=== PATIENT | female | born 1995 | race Hispanic/Latino ===

== ENCOUNTER 2022-12-24 16:12 | Outpatient (CLI) | payer OTHER, MEDICAID, SELFPAY ==
--- NOTE | ~2022-12-24 | US_ITS ---
EXAMINATION: US pelvic complete w TV DATE: 12/24/2022 16:54 INDICATION: Abnormal vaginal bleeding Comparison:No prior studies for comparison. TECHNIQUE: Multiple transabdominal and endovaginal sonographic images of the pelvis performed. FINDINGS: The uterus measures 8.7 x 4 x 4.8 cm. The endometrial complex measures 1.5 cm. The right ovary measures 3.6 x 2.7 x 3.3 cm and the left ovary measures 4.2 x 2.3 x 2.2 cm. There are bilateral ovarian cysts, largest on the left measuring 2 cm. There are small follicles in each ovary . Normal doppler signal in both ovaries. There is no free fluid in the pelvis. There are no abnormal masses seen on either side. IMPRESSION: 1. Bilateral ovarian cysts, largest in the left ovary measuring 2 cm 2: Endometrial thickening. Reviewed, dictated and finalized at location B.
== END 2022-12-24 16:13 | disposition home or self-care (01) ==
PROVIDERS: Visit Provider Student in an Organized Health Care Education/Training Program
DX: N93.9 Abnormal uterine and vaginal bleeding, unspecified (principal); R10.2 Pelvic and perineal pain; N83.201 Unspecified ovarian cyst, right side; N83.202 Unspecified ovarian cyst, left side
CPT/HCPCS: 76830; 76856

== ENCOUNTER 2023-02-20 16:12 | Outpatient (CLI) | payer OTHER, MEDICAID, SELFPAY | END 2023-02-20 16:13 | disposition home or self-care (01) | LOC: ANHLAB 16:14 | PROVIDERS: Visit Provider Student in an Organized Health Care Education/Training Program | DX: R30.9 Painful micturition, unspecified (principal) | CPT/HCPCS: 87086; 87088 ==

== ENCOUNTER 2025-03-07 16:37 | Emergency (ER) | payer OTHER, MEDICAID, SELFPAY ==
--- OUTSIDE RECORDS SUMMARY | 2023-10-29 08:40 | XMS_ITS ---
Author Organization [facility] Address [address] [place] [address] Care Team Providers Care Technical Maintenance Technician Name Role Phone Jerry Briggs Primary Care Provider Shar Fraser [phone] REASON FOR VISIT psych f/u Social History Sex Assigned At : Social History Observation Description Sex Assigned At Female Encounters Encounter Location Date Provider Diagnosis [address] [address] 10/29/2023 Shar Fraser Plan Of Treatment No Information Progress Notes * Kinza MUNOZ NDOB: [birth year] (29 yo F)Acc No.[id number]:10/29/2023 UNLOCKED PROGRESS NOTE Patient: Kinza MERCADO Provider: Jennifer Fraser :1995 A ge:28 Y S ex:Female Date:10/29/2023 Address:[facility] [place], [place] [id number] Pcp:Jerry Briggs Subjective: * Chief Complaints: * 1 . Psych f/u. * Medical History: Objective: * Vitals: Assessment: Plan: * Treatment: * * Electronic signature of Shar Fraser MD, [id number] on 03/07/2025 at 04:40 PM FIRE SUPPORT SPECIALIST Sign off status: Pending * Provider: Jennifer Fraser Date: 0 10/29/2023 Generated for Robe prado/Mary/eTransmitting on: 05/07/2024 04:40 PM FIRE SUPPORT SPECIALIST
--- OUTSIDE RECORDS SUMMARY | 2023-12-03 02:20 | XMS_ITS ---
Author Organization [facility] Address [address] [place] [address] Care Team Providers Care Catalogue Librarian Name Role Phone Jerry Briggs Primary Care Provider Shar Fraser [phone] REASON FOR VISIT Hosp FU/ [facility] Social History Sex Assigned At : Social History Observation Description Sex Assigned At Female Encounters Encounter Location Date Provider Diagnosis [address] [address] 12/03/2023 Shar Fraser Plan Of Treatment No Information Progress Notes * Kinza MUNOZ NDOB: [birth year] (29 yo F)Acc No.[id number]:12/03/2023 UNLOCKED PROGRESS NOTE Patient: Kinza MERCADO Provider: Jennifer Fraser :1995 A ge:28 Y S ex:Female Date:12/03/2023 Address:[facility] [place], [place] [id number] Pcp:Jerry Briggs Subjective: * Chief Complaints: * 1 . Hosp FU/ [facility]. * Medical History: Objective: * Vitals: Assessment: Plan: * Treatment: * * Electronic signature of Shar Fraser MD, [id number] on 03/07/2025 at 04:39 PM FLOOR CLERK Sign off status: Pending * Provider: Jennifer Fraser Date: 0 12/03/2023 Generated for Robe prado/Mary/eTransmitting on: 05/07/2024 04:39 PM FLOOR CLERK
--- OUTSIDE RECORDS SUMMARY | 2023-12-04 03:00 | XMS_ITS ---
Author Organization [facility] Address [address] [place] [address] Care Team Providers Care Grinder Outside Diameter Name Role Phone eJrry Briggs Primary Care Provider Shar Fraser [phone] REASON FOR VISIT labs Social History Sex Assigned At : Social History Observation Description Sex Assigned At Female Encounters Encounter Location Date Provider Diagnosis [address] [address] 12/04/2023 Shar Fraser Plan Of Treatment No Information Progress Notes * Kinza MUNOZ NDOB: [birth year] (29 yo F)Acc No.[id number]:12/04/2023 UNLOCKED PROGRESS NOTE Patient: Kinza MERCADO Provider: Jennifer Fraser :1995 A ge:28 Y S ex:Female Date:12/04/2023 Address:[address] [place], [place] [phone] Pcp:Jerry Briggs Check In:08:53 AM MARINE STEAMFITTER Subjective: * Chief Complaints: * 1 . Labs. * Medical History: Objective: * Vitals: Assessment: Plan: * Treatment: * * Electronic signature of Shar Fraser MD, [id number] on 03/07/2025 at 04:40 PM MARINE STEAMFITTER Sign off status: Pending * Provider: Jennifer Fraser Date: 0 12/04/2023 Generated for Robe prado/Mary/eTransmitting on: 05/07/2024 04:40 PM MARINE STEAMFITTER
--- OUTSIDE RECORDS SUMMARY | 2024-01-28 10:00 | XMS_ITS ---
Author Organization [facility] Address [address] [place] [address] Care Team Providers Care Cut And Cover Line Worker Name Role Phone Jerry Briggs Primary Care Provider [phone] Shar Fraser [phone] REASON FOR VISIT Psych F/U Medications Medication SIG (Take, Route, Frequency, Duration) Notes Start Date End Date Status Tamora Carbonate ER 450 MG 3 tablets at bedtime Orally Once a day; Duration: 30 days Active hydrOXYzine HCl 25 MG 1 tablet Orally tw ice a day; Duration: 30 days Active buPROPion HCl ER (XL) 150 MG 1 tablet in the morning Orally Once a day; Duration: 30 days 04/12/2022 Not-Taking Abilify 20 MG 1 tablet Orally Once a day; Duration: 30 days Active Social History Sex Assigned At : Social History Observation Description Sex Assigned At Female Encounters Encounter Location Date Provider Diagnosis [address] [address] 01/28/2024 Shar Fraser Plan Of Treatment No Information Progress Notes * Kinza MUNOZ NDOB: [birth year] (29 yo F)Acc No.[id number]:01/28/2024 UNLOCKED PROGRESS NOTE Patient: Kinza MERCADO Provider: Jennifer Fraser :1995 A ge:28 Y S ex:Female Date:01/28/2024 Address:[facility] Pcp:Jerry Briggs Subjective: * Chief Complaints: * 1 . Psych F/U. * Medical History: * Medications: T aking Abilify 20 MG Tablet 1 tablet Orally Once a day , Taking Tamora Carbonate ER 450 MG Tablet Extended Release 3 tablets at bedtime Orally Once a day , Taking hydrOXYzine HCl 25 MG Tablet 1 tablet Orally twice a day , Not-Taking buPROPion HCl ER (XL) 150 MG Tablet Extended Release 24 Hour 1 tablet in the morning Orally Once a day Objective: * Vitals: Assessment: Plan: * Treatment: * Recommended Wellness and Pre vention Guidelines: * S sj A jf L ast Done N ext Due A ction Taken N ONCOMPLIANT C ervical cancer screening - 0 01/28/2024 - - N ONCOMPLIANT H IV screening - 0 01/28/2024 - - * * Electronic signature of Shar Fraser MD, [id number] on 03/07/2025 at 04:40 PM STAY CUTTER Sign off status: Pending * Provider: Jennifer Fraser Date: 0 01/28/2024 Generated for Robe prado/Mary/Pato on: 05/07/2024 04:40 PM STAY CUTTER
--- NOTE | ~2025-03-07 | XR_ITS ---
EXAMINATION: XR chest 1V portable COMPARISON: No comparisons available. HISTORY: COUGHING FINDINGS: The lungs are clear, no effusion. No pneumothorax. Heart is normal size. Mediastinal and hilar contours are within normal limits. Bony thorax no acute abnormality. Miscellaneous: None Impression: No acute cardiopulmonary abnormality. Reviewed, dictated and finalized at location P. MIXER Impression: No acute cardiopulmonary abnormality.
[2025-03-07 16:40] VITALS: BP 147/91; PULSE 130; RESP 16; TEMP 36.9; O2SAT 100
--- OUTSIDE RECORDS SUMMARY | 2025-03-07 16:40 | XMS_ITS | Clinical Summary ---
Author Organization [facility] Address [address] [facility] [address] [place] [address] Phone Care Team Providers Care Telesales Professional Name Role Phone Unknown, Notinfile Primary Care Provider Unavail able Allergies No known active allergies Medications ARIPiprazole (ABILIFY) 20 mg tabletIndicatio ns:Bipolar Disorder Take 1 tablet (20 mg total) by mouth daily 30 tablet 11/08/2023 Active lithium ER (ESKALITH) 450 mg CR tabletIndicatio ns:Bipolar Disorder Take 3 tablets (1,350 mg total) by mouth nightly 90 tablet 11/08/2023 Active Active Problems Problem Noted Date Diagnosed Date Bipolar I disorder, current or most recent episode manic, in partial remission 11/05/2023 Psychosis, unspecified psychosis type 10/26/2023 Assessment & Plan (2023 2:12 AM CDT): The patient has a prior history of anxiety and depression, and she was recently diagnosed with bipolar I disorder due to concern for sanju in the past two months. Now presents in the setting of adherence to Abilify but not newly prescribed Depakote with elevated mood, distractibility, lability, flight of ideas, grandiosity, PM agitation (pacing, slapping mother), DNFS with preserved energy, hypertalkativeness, bizarre behavior, some paranoia, some thought disorganization. There is low concern for a substance-induced etiology of her symptoms based on subjective and objective evidence. Mood symptoms (sanju) seem to be more prominent on my exam, though history suggests a larger psychotic component previously; perhaps the psychotic symptoms have improved as a result of Abilify. Her presentation is thus most consistent with either a manic episode with psychotic features, or first episode psychosis. The differential diagnosis thus includes bipolar I disorder vs schizoaffective disorder, and less likely schizophrenia, MDD w/ psychotic features, cluster B traits, less likely substance-induced sanju/psychotic disorder. Would also consider adjustment disorder with anxiety in the setting of her recent and loss of her job. No obvious medical etiology. Given that she has found some benefit from Abilify and seems interested in continuing to take it, will plan to continue Abilify 20mg daily. The patient has not been compliant with Depakote which is likely a good thing given that she is a female of childbearing age with a recent who is not on medication. Will discontinue Depakote and plan to start lithium given lower risk (though still small risk of Ebstein anomaly were she to become again). Suspect she will not want to take the lithium as she expressed disdain for mood stabilizers feeling that they prevented her from having deep sleep. Plan: -Ad[place] involuntarily to unit [address]641 -Continue Abilify 20mg daily -Discontinue Depakote; start lithium 300mg TID -Ativan 1mg daily PRN and 1mg nightly PRN for anxiety/insomnia -Coordinate with patient's family (mother Clarissa) -PRN Zyprexa for clinically emergent severe agitation -Therapeutic milieu -SW assistance with disposition and outpatient follow-up coordination Vapes nicotine containing substance 10/26/2023 Assessment & Plan (10/26/2023 7:38 PM CDT): Patient states she is vaping too much (cannot quantify) and wants to quit. Plan: -NRT Family planning 10/26/2023 Assessment & Plan (10/26/2023 7:42 PM CDT): Patient reports recent on 08/03/2023 which was a tragic experience for her. Not currently on contraception and does not want to be. Happily in relationship for past 2.5 years, not able to see her boyfriend very often due to broken vehicle which will be fixed this week. Denies being sexually active as a result of broken vehicle, but would be concerned for future unplanned pregnancies. Plan: -Discontinue Depakote (though patient only took it once) given risk of abnormalities, avoid teratogenic medications -Contraceptive counseling Social History Tobacco Use Types Packs/Day Years Used Date Smoking Tobacco: Every Day Vaping Passive Smoke Exposure: Never Smokeless Tobacco: Never Tobacco Cessation:Ready to Q uit: Not Asked; Counseling Given: No [facility] Utilities Answer Date Recorded In the past 12 months has th [employer], gas, oil, or water [employer] threatened to shut off services in your home? No 2023 Social Connection and Isolation Panel Answer Date Recorded In a typical week, how many times do you talk on the phone with family, friends, or neighbors? Patient unable to answer 2023 How often do you get togethe r with friends or relatives? Patient unable to answer 2023 How often do you attend chur ch or mormon services? Patient declined 2023 Do you belong to any clubs o r organizations such as samaritan groups, unions, fraternal or athletic groups, or school groups? Patient declined 2023 How often do you attend meet ings of the clubs or organizations you belong to? Patient declined 2023 Are you , , di vorced, , never , or living with a partner? Never 2023 AUDIT-C Answer Date Recorded Q1: How often do you have a drink containing alcohol? Never 2023 Q2: How many drinks containi ng alcohol do you have on a typical day when you are drinking? Patient does not drink Q3: How often do you have si x or more drinks on one occasion? Never 2023 Overall Financial Resource Strain (CARDIA) Answe r Date Recorded How hard is it for you to pa y for the very basics like food, housing, medical care, and heating? Somewhat hard 2023 [facility] of Occupat ional Health - Occupational Stress Questionnaire Answer Date Recorded Do you feel stress - tense, restless, nervous, or anxious, or unable to sleep at night because your mind is troubled all the time - these days? To some extent 2023 Hunger Vital Sign Answer Date Recorded Within the past 12 months, y ou worried that your food would run out before you got the money to buy more. Never true 10/27/19 24 Within the past 12 months, t he food you bought just didn't last and you didn't have money to get more. Never true 2023 PRAPARE - Transportation Answer Date Re corded In the past 12 months, has l ack of transportation kept you from medical appointments or from getting medications? Yes 10/05 In the past 12 months, has l ack of transportation kept you from meetings, work, or from getting things needed for daily living? Yes 2023 Housing Stability Vital Sign Answer Yg e Recorded In the last 12 months, was t here a time when you were not able to pay the mortgage or rent on time? No 2023 In the past 12 months, how m any times have you moved where you were living? 1 2023 At any time in the past 12 m [facility], were you homeless or living in a prison (including now)? No 2023 Personal Safety Answer Date Recorded Have you ever been in or are you currently in a harmful physical or emotional relationship or is someone making you feel afraid or unsafe? Denies 10/26/2023 Comments Unknown Sex and Gender Information Value Date Recorded Sex Assigned at Not on file Legal Sex Female 12:55 PM CDT Gender Identity Not on file Sexual Orientation Not on file Last Filed Vital Signs Vital Sign Reading Time Taken Comments Blood Pressure 118/68 11/08/2023 7:49 AM CDT Pulse 88 11/08/2023 7:49 AM CDT Temperature 37 C (98.6 F) 11/08/2023 7:49 AM CDT Respiratory Rate 18 11/08/2023 7:49 AM CDT Oxygen Saturation 98% 11/08/2023 7:49 AM CDT Inhaled Oxygen Concentration - - Weight 87.7 kg (193 lb 6.4 oz) 10/29/2023 12:40 PM CDT Height 160 cm (5' 2.99) 10/26/2023 6:15 PM CDT Body Mass Index 34.27 10/26/2023 6:15 PM CDT Plan of Treatment Health Maintenance Due Date Last Done Comments Cervical Cancer Screening 1993 Depression Screening 1993 Hepatitis C Screening 1993 Varicella Vaccines (1 of 2 - 13+ 2-dose series) 2006 Hepatitis B Screening 10/28/2011 Regular Well Visit/Exam 18-64 10/28/2011 Pneumococcal vaccine <65 (1 of 2 - PCV) 2012 HPV Vaccines (1 - 3-dose SCDM series) 2020 Influenza Vaccine (#1) 2025 DTaP/Tdap/Td Vaccine (2 - Td or Tdap) 04/05/202605/2015 Insurance IDPA Advance Directives For more information, please contact: [phone] * Full Code (Latest Code Status on File) Date Activated Date Inactivated Comments 10/26/2023 5:15 PM 11/08/2023 6:14 PM Care Teams Telesales Professional Relationship Specialty Start Date End Date Unknown, Notinfile PCP - General 09/25/22
--- OUTSIDE RECORDS SUMMARY | 2025-03-07 16:40 | XMS_ITS | Data Portability ---
Author Organization [facility] Address [address] [place] [address] Care Team Providers Care Tanner Rotary Drum Continuous Process Name Role Phone ZEESHAN REIS Primary Care Provider Unavailabl e Assessment No assessment recorded. Plan of Treatment Reminders Order Date Submit Date Provider Last Modified By Organization Details Last Modified Time Details Appointments None recorded . Lab glucose, fingerst ick, blood 2018 019 [email or web address] In-Office Order, Internal Use Only DO Not Attach Compendium DO Not Attach Compendium, Do Not Delete/merge, [id number] 14:59:42 HbA1c (hemoglo bin A1c), blood 2018 019 In-Office Order, Internal Use Only DO Not Attach Compendium DO Not Attach Compendium, Do Not Delete/merge, [id number] 15:05:21 Referral psychiat rist referral 2019 020 [email or web address] Not available 0 11:56:22 neurolog ist referral - Please call patient to schedule appt. Thank you 2018 019 [email or web address] Not available 9 10:26:36 Procedures None recorded . Surgeries None recorded . Imaging US, neck [address] ([facility] [employer] [facility]), [address] [place], [address], 9 14:53:11 Medication Orders buspiron e 7.5 mg tablet 2019 020 [id number], [address] [place], [place], [id number], 0 12:56:43 amoxicil yazan 875 mg-potas sium clavulan ate 125 mg tablet 2018 019 [facility] #[id number], [address] [place], [place], [id number], 0 12:20:44 fluconaz ole 150 mg tablet 2018 019 [facility] #[id number], [address] [place], [place], [id number], 0 12:20:48 ibuprofe n 800 mg tablet 2018 019 [facility] #[id number], [address] [place], [place], [id number], 0 12:20:54 Cipro 500 mg tablet 2018 019 [facility] [address] [facility]658, [address] [place], [place], [id number], 9 14:21:33 metronid azole 500 mg tablet 2018 019 [facility] #32837, [address] [place], [place], [id number], 0 12:20:58 Carafate 1 gram tablet 2018 019 [facility] [address] [facility] #02636, [address] [place], [place], [id number], 9 14:21:56 Patient TargetsNo targets recorded. Patient Instructions Encounter Date Encounter Id Patient Instructions Last Modified By Organization Details Last Modified Time 07/25/2018 [id number] sleep upright , breathe in steam in shower daily ,,,, FF [email or web address] Not available 07/28/2018 17:26:52 Reason for Referral Neurologist Referral for Tra nsient visual loss Please call patient to schedule appt. Thank you Referring Physician: Zeeshan Reis, Internal Medicine, Encounter Date: 06/25/2018 Psychiatrist Referral for Ge neralized anxiety disorder Worsening of anxiety Referring Physician: Leah Sesay, Track Man, Encounter Date: 09/04/2019 Results Created Date Observation Date Name Description Value Unit Range Abnormal Flag Note LastModifiedBy Organization Detail LastModifiedTime 06/25/19 19 06/25/2018 HbA1c (hemo globi n A1c), blood HbA1c 5.4 Not Available In-Office Order Internal Use Only DO Not Attach Compendium DO Not Attach Compendium, Do Not Delete/merge, [id number] 06/25/2018 15:04:44 06/25/19 19 06/25/2018 gluco se, finge rstic k, blood Blood Glucose: mg/dl 116 mg/dl Not Available In-Office Order Internal Use Only DO Not Attach Compendium DO Not Attach Compendium, Do Not Delete/merge, [id number] 06/25/2018 14:58:18 11/07/19 20 11/07/2019 XR, chest No observ ation record ed. [address] (Imaging) [address] [place], [address], 11/09/2019 10:44:44 11/07/19 20 11/06/2019 CT, abdom en + pelvi s, w/ contr ast No observ ation record ed. [address] (Imaging) [address] [place], [address], 11/09/2019 10:45:03 11/14/19 24 11/14/2023 CT, cervi wilfred spine , w/o contr ast No observ ation record ed. [address] [place], [address], 11/20/2023 09:53:11 11/14/1911/14/2023 CT, chest + abdom en + pelvi s, w/o contr ast No observ ation record ed. [email or web address] [facility] [address] [place], [address], 11/20/2023 09:53:39 Result Notes None recorded. Problems Name Problem SNOMED Code Status Onset Date Resolution Date Notes Provider Name and Address Organization Details Recorded Time Chronic abdomina l pain 166418092 Active 2018 Not Available [facility] 3 10:46:04 Decrease d muscle function 24081010 Active 2018 feft face and forehead Not Available [facility] 3 10:46:05 Transien t visual loss 21294577 Active 2018 Left Not Available [facility] 3 10:46:05 Family history of diabetes mellitus 693143232 Active 2018 Not Available [facility] 3 10:46:05 Acute sinusiti s 34217087 Completed 201809/04/2019 JESÚS AQUINO Attn: Accounting ,[address] [place], [address] , [facility] 0 12:34:10 Generali zed anxiety disorder 61236005 Active 2019 Not Available [facility] 3 10:46:05 Depressi ve disorder 55208478 Active 2019 Not Available [facility] 3 10:46:05 Pneumoni a 985917452 Active 2019 Xray in the ER on 11.07.2019 showed right lower lobe pneumoni a Not Available [facility] 3 10:46:05 Notes:Some problems listed i n Documents: #[id number], #[id number] could not be added to this patient's chart. Please review these documents and add these problems to the patient's chart manually as needed. Problem Notes None recorded. Medical Equipment None Reported. Allergies No known drug allergies Medications Name Sig Start Date Stop Date Status Note LastModified by Organization Details LastModified Time promethazin e-DM 6.25 mg-15 mg/5 mL oral syrup Take 5 mL every 6 hours by oral route as needed for 10 days. 09/03 completed Not Available Not Available Not Available ibuprofen 800 mg tablet Take 1 tablet 3 times a day by oral route with meals for 30 days. 09/03 completed Not Available Not Available Not Available fluconazole 150 mg tablet Take 1 tablet every 72 hours by oral route as needed for 9 days. 09/03 completed Not Available Not Available Not Available sucralfate 1 gram tablet Take 1 tablet 4 times a day by oral route as needed for 3 days. 06/25 completed Not Available Not Available Not Available metronidazo le 500 mg tablet Take 1 tablet every 8 hours by oral route around the clock for 5 days. 09/03 completed Not Available Not Available Not Available acetaminoph en 300 mg-codeine 30 mg tablet 09/03 completed Not Available Not Available Not Available ciprofloxac in 500 mg tablet Take 1 tablet every 12 hours by oral route as directed for 5 days. 06/25 completed Not Available Not Available Not Available lithium carbonate ER 450 mg tablet,exte nded release TAKE 3 TABLET BY MOUTH ONCE DAILY AT BEDTIME active Not Available Not Available No t Available divalproex ER 500 mg tablet,exte nded release 24 hr TAKE 1 TABLET BY MOUTH DAILY AT BEDTIME active Not Available Not Available No t Available promethazin e 25 mg tablet TAKE 1 TABLET BY MOUTH EVERY 4 TO 6 HOURS NEEDED FOR NAUSEA active Not Available Not Available No t Available buspirone 7.5 mg tablet 2019 active Not Available Not Available Not Avai lable hydroxyzine HCl 25 mg tablet TAKE 1 TABLET BY MOUTH TWICE DAILY active Not Available Not Available No t Available ibuprofen 600 mg tablet TAKE 1 TABLET BY MOUTH EVERY 6 HOURS NEEDED FOR PAIN active Not Available Not Available No t Available doxycycline hyclate 100 mg tablet active Not Available Not Available No t Available naproxen 500 mg tablet TAKE 1 TABLET BY MOUTH TWICE DAILY WITH FOOD active Not Available Not Available No t Available amoxicillin 875 mg-potassiu m clavulanate 125 mg tablet Take 1 tablet every 12 hours by oral route for 10 days. 09/03 completed Not Available Not Available Not Available hydroxyzine pamoate 25 mg capsule TAKE 1 CAPSULE BY MOUTH UP TO FOUR TIMES DAILY NEEDED active Not Available Not Available No t Available azithromyci n 500 mg tablet active Not Available Not Available Not Available medroxyprog esterone 150 mg/mL intramuscul ar syringe ADMINISTE R 1 ML IN THE MUSCLE EVERY 3 MONTHS active Not Available Not Available No t Available aripiprazol e 20 mg tablet TAKE 1 TABLET BY MOUTH ONCE DAILY active Not Available Not Available No t Available Vitals Date Recorded Body height Body mass index (BMI) Body weight Body temperature Oxygen saturation Oxygen saturation in Arterial blood by Pulse oximetry Heart rate Systolic And Diastolic Provider Name and Address Organization Details Last Updated DateTime 9 161.29 cm 31.2 kg/m2 18634.0 3 g 97.8 [degF] 98 % 98 % 80 /min 100/64 mm[Hg] Pascual Eid MA [facility] 9 13:14:48 Date Recorded Body height Body mass index (BMI) Body weight Body temperature Oxygen saturation Oxygen saturation in Arterial blood by Pulse oximetry Heart rate Systolic And Diastolic Provider Name and Address Organization Details Last Updated DateTime 9 161.29 cm 31.2 kg/m2 15335.0 3 g 98 [degF] 98 % 98 % 88 /min 110/76 mm[Hg] Clari Alfaro MA [facility] 9 14:23:26 Date Recorded Body height Body mass index (BMI) Body weight Oxygen saturation Oxygen saturation in Arterial blood by Pulse oximetry Heart rate Body temperature Systolic And Diastolic Provider Name and Address Organization Details Last Updated DateTime 9 161.29 cm 30.1 kg/m2 79155.7 6 g 99 % 99 % 82 /min 98.4 [degF] 128/80 mm[Hg] Kristin Carroll MA [facility] 9 17:00:33 Social History Question Answer Notes LastModified by Organizat ion Details LastModified Time Tobacco Smoking Status Former Smoker cigarettes Pascual Eid MA [facility], [facility] 05/22/2018 13:09:26 What Was The Date Of Your Most Recent Tobacco Screening? 09/04/2019 Information not available 09/04/2019 How Many Years Have You Smoked Tobacco? 2 [email or web address] Information not available 05/22/2018 Sex: Unknown Functional Status Question Answer Note LastModified by Organizat ion Details LastModified Time Do you or have you ever used e-cigarettes or vape? Current user of electronic cigarettes Information not available 09/04/2019 Mental Status None recorded. Family History Relationship Description Onset Age of this Age Resolved Age Notes LastModified by Organization Details LastModified Time Mother Depressive disorder [email or web address] Not available 05/22 13:08:28 Father Diabetes mellitus [email or web address] Not available 05/22 13:08:37 Father Hypertensive disorder [email or web address] Not available 05/22 13:08:57 Father Kidney disease [email or web address] Not available 05/22 13:09:05 Sister Disorder of thyroid gland [email or web address] Not available 05/22 13:08:46 Medical History Condition Response GI Problems Y Gynecological History Statement/Question Response Date of LMP 07/08/2018 Obstetrics History GPAL:G 0 P 0 0 0 0 Past Encounters Encounter ID Performer Location Encounter Start Date Encounter Closed Date Diagnosis/Indication Diagnosis SNOMED-CT Code Diagnosis ICD10 Code Diagnosis IMO Codes Diagnosis [id number] [facility] [address] [place] [phone] 05/22/2018 12:36:23 05/23/2018 11:25:37 Acute infective gastroenteritis 77541469 A09 liquid diet as tolerated, off until 05-27-2018 . [id number] MD Sae Bullard (Adult Med) [address] [place] [phone] 06/25/2018 14:16:15 06/26/2018 11:09:01 Transient visual loss 72452074 H53.129 Decreased muscle function 91060137 M62.9 Family his tory of diabetes mellitus 583967984 Z83.3 [id number] MD Sae Narayan (Adult Med) [address] [place] [id number] 07/25/2018 16:53:08 07/28/2018 11:31:22 Acute sinusitis 21740672 J01.90 [id number] JESÚS AQUINO [facility] (Adult Med) [address] [place] [phone] 09/04/2019 12:10:36 09/07/2019 11:53:51 Generalized anxiety disorder 96474876 F41.1 Complainin g of anxiety x 1 year but admits to worsening of her symptoms over the past 2 months.She states her life fell apart about 1 year ago, she lost her job and her car, lives at home with her parents, legal issues with children's father, and children's father trying to be in contact although she no longer feels comfortabl e being around him.She states, I am always in fear, I am scared something bad will happen to my kids or myself, I do not like driving on busy roads, even the other day when I was outside with the kids I was nervous about a dog coming over and attacking them.She states her nerves are so bad at times that it keeps her from leaving the house. Her symptoms are worse at night and tend to impact her ability to fall asleep.MOLLY -7 is positive in the office today (15 out of 21)- discussed anxiety symptoms with patient- she is requesting psych referral, I will place the referral, made pt. aware she may not be seen x many months- will start her on buspirone for her anxiety. WE discussed starting an SSRI but pt. felt like her depression is only situationa l right now and would rather have the anti-anxie ty medication - will help schedule her an appointmen t with counseling - follow up with PCP in 3-4 weeks to see how medication is working Depressive disorder 7467 8430 F32.9 Complainin g of worsening anxiety symptomsTh rough our discussion , pt. also seems to be dealing with depression Current symptoms of loss of appetite, fatigue, trouble falling asleep, and feeling bad about herself.Pt . believes her depression is situationa l, denies HI/SIPHQ 06/14 was positive in office today (12 out of 27)- patient wanted to try anti-anxie ty medication alone first rather than SSRI- continue to monitor depression symptoms- Be physically active. Getting 30 minutes of exercise each day is good for your body and your mind. - Plan something pleasant for yourself every day. Include activities that you have enjoyed in the past. - Spend time with family and friends. It may help to speak openly about your depression with people you trust. Health Concerns Section Related Observation LastModified by Organization Shama [email or web address] LastModified Time None Recorded Concern Status LastModified by Organization Details LastModified Time None Recorded Advance Directives Directive None Recorded Payers Insurance Date Sequence Insurance Name Policy Number Policy Espinoza Covered Member ID Espinoza Member ID Guarantor Name 12/22/2023 1 [facility] - DOS PRIOR TO 2020 (MEDICAID REPLACEMENT - HMO) Kinza Orr [id number] Kinza Munoz Notes Date Note Type Note Provider Name and Address Organization Details Recorded Time 9 text/html ROS as noted in the HPI Upper stomack sore and N/V, very uncomfortable to perform her regular job, NKDA., abut one year ago had gastritis, al;s has headacheing, no fever. Losse farhan. Ate a chicken sandwich last night. Lianna Arevalo MD Attn: Accounting,[address] [place], [address], [facility] 05/22/2018 13:49:25 9 text/html over the past six months she has had a transient episode of left-sided visual loss, loss of control of her legs and more recently she noticed abnormal appearance of the left side of her face and possible drooping of her right upper lid. She is unsure of alteration in her speech Zeeshan Reis MD Attn: Accounting,[address] [facility], [place], [address], [facility] 06/25/2018 15:10:45 9 text/html ROS as noted in the HPI sinus pressure , no fever , just started ..... Ovidio Laguna PA-C Attn: Accounting,[address] [place], [address], [facility] 07/28/2018 17:28:23 0 text/html Anxiety/DepressionReport ed by PatientHPIFor quality, patient reportssymptoms worse in the evening,mood worse, andincreased anxiety. For severity, patient reportsinterference with household activitiesandinterferenc e with sleep (thoughts and worry keep her awake at night). For context, patient reportsmajor life stressors,family problems,legal problems,trouble at work, andrelationship stress. For associated symptoms, patient reportsweight loss (___ lbs),eating less,emotional lability,anxiety,hyperse nsitivity,depression,nessa eliness,insomnia,sleep disturbances, andanhedoniabut reportsdenies homicidal ideations,no significant weight gain,no visual/auditory hallucinations,no delusions,no shortness of breath, andno panic. For duration, patient reportsfrequent. For onset/timing, patient reports2 months ago. For modifying factors, (no hx of medication or counseling).ROS as noted in the HPI 23 year old female presents today for phone visit. Complaining of anxiety x 1 year but admits to worsening of her symptoms over the past 2 months. She states her life fell apart about 1 year ago, she lost her job and her car, lives at home with her parents, legal issues with children's father, and children's father trying to be in contact although she no longer feels comfortable being around him. She states, I am always in fear, I am scared something bad will happen to my kids or myself, I do not like driving on busy roads, even the other day when I was outside with the kids I was nervous about a dog coming over and attacking them. She states her nerves are so bad at times that it keeps her from leaving the house. Her symptoms are worse at night and tend to impact her ability to fall asleep. JESÚS AQUINO Attn: Accounting,[address] [place], [address], [place] [facility] 09/04/2019 13:42:16 OBGyn Episode No OBEpisode recorded.
--- OUTSIDE RECORDS SUMMARY | 2025-03-07 16:40 | XMS_ITS | Patient Health Record ---
Author Organization [facility] Address [address] [place] [address] Care Team Providers Care Cook Frozen Dessert Name Role Phone Chester Jerry Primary Care Provider [phone] AnthonyWarner levitessa Unavailable [phone] Allergies No Known Allergies Reason For Referral No Information Medications Medication SIG (Take, Route, Frequency, Duration) Notes Start Date End Date Status [facility] [place] Carbonate ER 450 MG 3 tablets at bedtime Orally Once a day; Duration: 30 days Active Abilify 20 MG 1 tablet Orally Once a day; Duration: 30 days Active hydrOXYzine HCl 25 MG 1 tablet Orally tw ice a day; Duration: 30 days Active buPROPion HCl ER (XL) 150 MG 1 tablet in the morning Orally Once a day; Duration: 30 days 04/12/2022 Not-Taking Social History Tobacco Use: Social History Observation Description Date Details (start date - stop date) Current Smoker NA - NA Sex Assigned At : Social History Observation Description Sex Assigned At Female Dont use, Tobacco Use/Smoking Question Answer Notes Are you a Uses tobacco in other forms Tobacco Control (Standard) Question Answer Notes Tobacco use: Current every day smoker Additional Findings: Tobacco user e-cigarette Problems Problem Type SNOMED Code ICD Code Onset Dates Problem Status W/U Status Risk Notes Problem Depression (499803844) Depression (F32.9) Active confirmed Problem Anxiety (32615277) Anxiety (F41.9) Active confirmed Problem Bipolar 1 disorder (464715406) Bipolar 1 disorder (F31.9) Active confirmed Problem Generalized anxiety disorder (17494005) MOLLY (generalized anxiety disorder) (F41.1) Active confirmed Encounters Encounter Location Date Provider Diagnosis Howard [address] [place] [address] 04/27/2024 Arif Habib Plan Of Treatment No Information Insurance Providers Payer Name Payer Address Payer Phone Subscriber Number Group Number Insured Name Patient Relationship to Insured Coverage Start Date Coverage End Date [facility] [address] [place] [address] [id number] Kinza Munoz Self - patient is the insured 2 4 MEDICAID [address] [place] [address] [id number] Kinza Munoz Self - patient is the insured 2 4 Medical (General) History Surgical History Surgery Date(Month/Year) 2016 biopsy and cancer cells taken off uterus 2019 Hospitalization History Reason Date(Month/Year) [facility] 10/2023
--- NOTE | 2025-03-07 17:21 | ED.URI ---
HPI - URI/Sore Throat General Chief Complaint: Upper Respiratory Infection Stated Complaint: fever, URI, 38 weeks Time Seen by Provider: 03/07/25 17:21 Source: patient Mode of arrival: ambulatory Limitations: no limitations History of Present Illness HPI Narrative: 29 YEARS OLD WHITE FEMALE CAME TO THE ED WITH PRODUCTIVE COUGH OF CLEAR SPUTUM OVER THE LAST 3 DAYS WORSE WHEN SHE LAY DOWN FLAT, PATIENT QUIT SMOKING 2 WEEKS AGO. PATIENT SCHEDULED FOR ON THE OF THIS MONTH. SHE DENIES SICK CONTACT. 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 Pap smear of cervix 06-30-2019 lgsil HPV +hpv colpo -CIN2 Surgical History Surgical History H/O LEEP (09/29/19) History of colposcopy with cervical biopsy 07/22/19 DEJAH II History of 04/04/16 primary c/s--twins, gestational hypertension Family History Family History Father Kidney failure Social History Social History Smoking status: Current every day smoker Tobacco type: e-cigarettes/vaping Alcohol intake: never Substance use: never Substance use type: does not use Lack of Transportation: No Lack of Food: Never True Current Housing: I Have Housing Concerned About Future Housing: No Difficulty Paying Gas/Electric Bills: No Difficulty Paying for Meds: No Currently Unemployed: No Education: High School Diploma/GED Difficulty w/ Childcare or Family Care: No Living arrangements: other Additional living arrangements comments: single Occupation/Education: occupation Additional occupation/education comments: truck driver heavy Gender identity (if verbalized by the patient): Female Sexual Orientation (if Verbalized by the Patient): Straight or Heterosexual Spiritual care concerns: No Exam Narrative: GENERAL APPEARANCE: WELL-DEVELOPED, WELL-NOURISHED SKIN: NORMAL COLOR HEAD: NORMOCEPHALIC, NONTRAUMATIC EYES: CLEAR CONJUNCTIVA ENT: OROPHARYNX NORMAL, EARS NORMAL, NOSE NORMAL NECK: SUPPLE, NONTENDER CHEST AND RESPIRATORY: AIRWAY PATENT, NO RESPIRATORY DISTRESS, NO ACCESSORY MUSCLE USE HEART: REGULAR RATE/RHYTHM ABDOMEN: SOFT, NONTENDER, NO ORGANOMEGALY, QUIET BOWEL SOUNDS VASCULAR: NORMAL PERIPHERAL PULSES, NORMAL CAPILLARY REFILL. MUSCULOSKELETAL: NORMAL RANGE OF MOTION, NONTENDER BACK NEUROLOGIC: ALERT AND ORIENTED ?3, DEHYDROGENATION CONVERTER OPERATOR IS NORMAL TESTED, NO GROSS MOTOR DEFICIT Course Vital Signs Vital signs: Vital Signs Temperature 36.9 C 03/07/25 16:40 Pulse Rate 130 H 03/07/25 16:40 Respiratory Rate 16 03/07/25 16:40 Blood Pressure 147/91 H 03/07/25 16:40 Pulse Oximetry 100 03/07/25 16:40 Oxygen Delivery Room Air 03/07/25 16:40 Temperature 36.9 C 03/07/25 16:40 Pulse Rate 130 H 03/07/25 16:40 Respiratory Rate 16 03/07/25 16:40 Blood Pressure 147/91 H 03/07/25 16:40 Pulse Oximetry 100 03/07/25 16:40 Oxygen Delivery Room Air 03/07/25 17:20 MDM - URI/Sore Throat MDM Narrative Medical decision making narrative: DIFFERENTIAL DIAGNOSIS INCLUDE UPPER RESPIRATORY VIRAL INFECTION, INCREASE COUGHING AFTER STOPPING SMOKING WHICH COULD LAST UP TO WEEKS OR MONTHS OR EVEN A YEAR. PATIENT TESTED NEGATIVE FOR COVID FLU RSV, CHEST X-RAY SHOWED NO ACUTE ABNORMALITY. THE PT WAS DISCHARGED TO HOME.THE PT,S CONDITION UPON DISCHARGE WAS FAIR,EDUCATION WAS PROVIDED TO THE PT IN REFERENCE TO THE FINAL IMPRESSION,DISCHARGE STUDY RESULTS,TREATMENT,PROGNOSIS AND NEED FOR FOLLOW UP . Differential Diagnosis Differential diagnosis: Likely upper respiratory infection, viral infection and other Lab Data Attestation: I reviewed the patient's lab results. Labs: Lab Results 03/07/25 Range/Units 17:33 Influenza A (RT-PCR) Negative (Negative) Influenza B (RT-PCR) Negative (Negative) RSV (RT-PCR) Negative (Negative) SARS-CoV-2 RNA (RT-PCR) Negative (Negative) Imaging Data Radiologist's impression: Impressions Chest X-Ray 03/07/25 17:53 Impression: No acute cardiopulmonary abnormality. Critical Care Time Critical Care Time Critical Care Time: No Discharge Plan Discharge Clinical Impression: Acute upper respiratory infection, Stopped smoking Patient Disposition: Home Condition: Stable Instructions: Upper Respiratory Infection (ED) Additional Instructions: RETURN IF SYMPTOMS ARE WORSENING , CALL YOUR FAMILY PHYSICIAN FOR APPOINTMENT, TAKE TYLENOL NEEDED FOR ACHES AND PAIN, CONTINUE HOME MEDICATIONS. COUGHING IS EXPECTED AFTER STOPPING SMOKING WHICH EXPECTED TO LAST FROM A FEW WEEKS TO SEVERAL MONTHS OR EVEN UP TO A YEAR. Patient Language: Scottish Prescriptions: No Action ferrous sulfate [Feosol] 325 mg (65 mg iron) tablet 325 mg PO DAILY Follow-up/Referrals: UNKNOWN,DOCTOR [Primary Care Provider]
[2025-03-07 18:13] LABS: Influenza A QL RT-PCR Negative (Negative); Influenza B QL RT-PCR Negative (Negative); RSV RNA, RT-PCR Negative (Negative); SARS-CoV-2 RNA PCR Negative (Negative)
[2025-03-07 18:36] VITALS: BP 142/86; PULSE 103; RESP 18; TEMP 37.5; O2SAT 98
== END 2025-03-07 18:37 | disposition home or self-care (01) ==
PROVIDERS: Emergency Provider Emergency Medicine
DX: O99.513 Diseases of the respiratory system complicating pregnancy, third trimester (principal); J06.9 Acute upper respiratory infection, unspecified; Z87.891 Personal history of nicotine dependence; Z3A.39 39 weeks gestation of pregnancy
CPT/HCPCS: 71045; 87637; 99283

== ENCOUNTER 2025-03-11 14:11 | Outpatient (CLI) | payer MEDICAID, SELFPAY ==
--- NOTE | ~2025-03-11 | US_ITS ---
EXAM/PROCEDURE: US OB /maternal detail HISTORY: Z34.90 - Encounter for supervision of normal , u... COMPARISON: Evaluation of viability growth and dates TECHNIQUE: Limited exam performed. FINDINGS: A single viable intrauterine gestation is present with heart rate of 155 bpm Presentation: Vertex and longitudinal Placenta: Posterior with no gross evidence of previa or abruption. ROWAN: 23.98 cm. EGA by dates 38 weeks 6 days EGA by ultrasound 35 weeks 0 days EDC by dates March 19 EDC by ultrasound April 15 EFW: 2594 g or 5 lbs. 12 oz. EFW percentile is less than 3% Growth ratios appear normal. No gross anomaly seen. IMPRESSION: 1. Directed exam demonstrating single viable intrauterine gestation with EFW of 2594 g. Dates are discordant as above. 2. ROWAN of 23.98 cm possibly representing mild polyhydramnios. Reviewed, dictated and finalized at location A. MACY MANAGER
--- OUTSIDE RECORDS SUMMARY | 2025-03-11 20:28 | XMS_ITS | Clinical Summary ---
Author Organization [facility] Address [address] [place] [address] Phone Care Team Providers Care Mop Maker Name Role Phone Unknown, Notinfile Primary Care [...] deep sleep. Plan: -Admit [place]untarily to unit 80967 -Continue Abilify 20mg daily -Discontinue Depakote; start [...] Q uit: Not Asked; Counseling Given: No [facility] Utilities Answer Date Recorded In the past 12 months has th [place], gas, oil, or water [employer] threatened to shut off services in your [...] often do you attend chur ch or jewish services? Patient declined 2023 Do you belong to any clubs o r organizations such as christian groups, unions, fraternal or athletic groups, or [...] medical care, and heating? Somewhat hard 2023 [facility] of Occupat ional Health - Occupational Stress [...] any time in the past 12 m [facility], were you homeless or living in a snf (including now)? No 2023 Personal Safety Answer [...] Advance Directives For more information, please contact: [phone] * Full Code (Latest Code Status on File) Date Activated Date Inactivated Comments 10/26/2023 5:15 PM 11/08/2023 6:14 PM Care Teams Mop Maker Relationship Specialty Start Date End Date Unknown, Notinfile PCP - General 09/25/22
--- OUTSIDE RECORDS SUMMARY | 2025-03-11 20:28 | XMS_ITS | Data Portability ---
Author Organization [facility] Address [address] [place] [address] Care Team Providers Care Lumber Driver Name Role Phone ZEESHAN REIS Primary Care Provider Unavailabl e Assessment No assessment recorded. Plan of Treatment Reminders Order Date Submit Date Provider Last Modified By Organization Details Last Modified Time Details Appointments None recorded . Lab glucose, fingerst ick, blood 2018 019 [email or web address] In-Office Order, Internal Use Only DO Not Attach Compendium DO Not Attach Compendium, Do Not Delete/merge, [id number] 14:59:42 HbA1c (hemoglo bin A1c), blood 2018 019 In-Office Order, Internal Use Only DO Not Attach Compendium DO Not Attach Compendium, Do Not Delete/merge, [id number] 15:05:21 Referral psychiat rist referral 2019 020 [email or web address] Not available 0 11:56:22 neurolog ist referral - Please call patient to schedule appt. Thank you 2018 019 [email or web address] Not available 9 10:26:36 Procedures None recorded . Surgeries None recorded . Imaging US, neck [address] ([facility] [employer] [facility]), [address] [place], [address], 9 14:53:11 Medication Orders buspiron e 7.5 mg tablet 2019 020 [facility]274, [address] [place], [place], [id number], 0 12:56:43 amoxicil yazan 875 mg-potas sium clavulan ate 125 mg tablet 2018 019 [facility] #[facility]82, [address], [place], [id number], 0 12:20:44 fluconaz ole 150 mg tablet 2018 019 [facility] #35243, [address], [place], [id number], 0 12:20:48 ibuprofe n 800 mg tablet 2018 019 [facility] #92204, [address], [place], [id number], 0 12:20:54 Cipro 500 mg tablet 2018 019 [facility] [place] [place] [address], [address], [place], [id number], 9 14:21:33 metronid azole 500 mg tablet 2018 019 [facility] [place] [place] [address], [address], [place], [id number], 0 12:20:58 Carafate 1 gram tablet 2018 019 [facility] [place] [place] [address], [address], [place], [id number], 9 14:21:56 Patient TargetsNo targets recorded. Patient Instructions Encounter Date Encounter Id Patient Instructions Last Modified By Organization Details Last Modified Time 07/25/2018 [id number] sleep upright , breathe in steam in shower daily ,,,, FF [email or web address] Not available 07/28/2018 17:26:52 Reason for Referral Neurologist Referral for Tra nsient visual loss Please call patient to schedule appt. Thank you Referring Physician: Zeeshan Reis, Internal Medicine, Encounter Date: 06/25/2018 Psychiatrist Referral for Ge neralized anxiety disorder Worsening of anxiety Referring Physician: Leah Sesay, Plaster Tender, Encounter Date: 09/04/2019 Results Created Date Observation Date Name Description Value Unit Range Abnormal Flag Note LastModifiedBy Organization Detail LastModifiedTime 06/25/19 19 06/25/2018 HbA1c (hemo globi n A1c), blood HbA1c 5.4 Not Available In-Office Order Internal Use Only DO Not Attach Compendium DO Not Attach Compendium, Do Not Delete/merge, [id number] 06/25/2018 15:04:44 06/25/19 19 06/25/2018 gluco se, finge rstic k, blood Blood Glucose: mg/dl 116 mg/dl Not Available In-Office Order Internal Use Only DO Not Attach Compendium DO Not Attach Compendium, Do Not Delete/merge, [id number] 06/25/2018 14:58:18 11/07/19 20 11/07/2019 XR, chest No observ ation record ed. [address] (Imaging) [address] [place], [address], 11/09/2019 10:44:44 11/07/19 20 11/06/2019 CT, abdom en + pelvi s, w/ contr ast No observ ation record ed. [address] (Imaging) [address] [place], [address], 11/09/2019 10:45:03 11/14/19 24 11/14/2023 CT, cervi wilfred spine , w/o contr ast No observ ation record ed. [address] [place], [address], 11/20/2023 09:53:11 11/14/1911/14/2023 CT, chest + abdom en + pelvi s, w/o contr ast No observ ation record ed. [email or web address] [facility] [address] [place], [address], 11/20/2023 09:53:39 Result Notes None recorded. Problems Name Problem SNOMED Code Status Onset Date Resolution Date Notes Provider Name and Address Organization Details Recorded Time Chronic abdomina l pain 153057275 Active 2018 Not Available [facility] 3 10:46:04 Decrease d muscle function 81042619 Active 2018 feft face and forehead Not Available [facility] 3 10:46:05 Transien t visual loss 73354449 Active 2018 Left Not Available [facility] 3 10:46:05 Family history of diabetes mellitus 030212347 Active 2018 Not Available [facility] 3 10:46:05 Acute sinusiti s 96164750 Completed 201809/04/2019 JESÚS AQUINO Attn: Accounting ,[address] [place], [address] , [facility] 0 12:34:10 Generali zed anxiety disorder 62245928 Active 2019 Not Available [facility] 3 10:46:05 Depressi ve disorder 75610663 Active 2019 Not Available [facility] 3 10:46:05 Pneumoni a 307460236 Active 2019 Xray in the ER on 11.07.2019 showed right lower lobe pneumoni a Not Available [facility] 3 10:46:05 Notes:Some problems listed i n Documents: #[id number], #[id number] could not be added to this patient's [...] Updated DateTime 9 161.29 cm 31.2 kg/m2 39799.0 3 g 97.8 [degF] 98 % 98 % 80 /min 100/64 mm[Hg] Pascual Eid MA [facility] 9 13:14:48 Date Recorded Body height Body mass index (BMI) Body weight Body temperature Oxygen saturation Oxygen saturation in Arterial blood by Pulse oximetry Heart rate Systolic And Diastolic Provider Name and Address Organization Details Last Updated DateTime 9 161.29 cm 31.2 kg/m2 92080.0 3 g 98 [degF] 98 % 98 % 88 /min 110/76 mm[Hg] Clari Alfaro MA [facility] 9 14:23:26 Date Recorded Body height Body mass index (BMI) Body weight Oxygen saturation Oxygen saturation in Arterial blood by Pulse oximetry Heart rate Body temperature Systolic And Diastolic Provider Name and Address Organization Details Last Updated DateTime 9 161.29 cm 30.1 kg/m2 12959.7 6 g 99 % 99 % 82 /min 98.4 [degF] 128/80 mm[Hg] Kristin Carroll MA [facility] 9 17:00:33 Social History Question Answer Notes LastModified by Organizat ion Details LastModified Time Tobacco Smoking Status Former Smoker cigarettes Pascual Eid MA [facility], [facility] 05/22/2018 13:09:26 What Was The Date Of [...] ICD10 Code Diagnosis IMO Codes Diagnosis Note [id number] [facility] [address] [place] [phone] 05/22/2018 12:36:23 05/23/2018 11:25:37 Acute infective gastroenteritis 83353271 A09 liquid diet as tolerated, off until 05-27-2018 . [id number] MD Sae Bullard (Adult Med) [address] [place] [phone] 06/25/2018 14:16:15 06/26/2018 11:09:01 Transient visual loss 81114801 H53.129 Decreased muscle function 20037864 M62.9 Family his tory of diabetes mellitus 448243969 Z83.3 [id number] MD Sae Narayan (Adult Med) [address] [place] [phone] 07/25/2018 16:53:08 07/28/2018 11:31:22 Acute sinusitis 59046699 J01.90 [id number] JESÚS AQUINO [facility] (Adult Med) [address] [place] [phone] 09/04/2019 12:10:36 09/07/2019 11:53:51 Generalized anxiety disorder 52341713 F41.1 Complainin g of anxiety x 1 [...] see how medication is working Depressive disorder 9885 7472 F32.9 Complainin g of worsening anxiety symptomsTh [...] Espinoza Member ID Guarantor Name 12/22/2023 1 [facility] - DOS PRIOR TO 2020 (MEDICAID REPLACEMENT - HMO) Kinza Orr [id number] Kinza Munoz Notes Date Note Type Note Provider Name and Address Organization Details Recorded Time 9 text/html ROS as noted in the HPI Upper stomack sore and N/V, very uncomfortable to perform her regular job, [employer]., abut one year ago had gastritis, al;s has headacheing, no fever. Losse farhan. Ate a chicken sandwich last night. Lianna Arevalo MD Attn: Accounting,[address] [place], [address], [facility] 05/22/2018 13:49:25 9 text/html over the past six months she has had a transient episode of left-sided visual loss, loss of control of her legs and more recently she noticed abnormal appearance of the left side of her face and possible drooping of her right upper lid. She is unsure of alteration in her speech Zeeshan Reis MD Attn: Accounting,[address] [facility], [place], [address], [facility] 06/25/2018 15:10:45 9 text/html ROS as noted in the HPI sinus pressure , no fever , just started ..... Ovidio Laguna PA-C Attn: Accounting,[address] [place], [address], [facility] 07/28/2018 17:28:23 0 text/html Anxiety/DepressionReport [...] fall asleep. JESÚS AQUINO Attn: Accounting,[address] [place], [address], [place] [facility] 09/04/2019 13:42:16 OBGyn Episode No OBEpisode recorded.
== END 2025-03-11 14:12 | disposition home or self-care (01) ==
PROVIDERS: Visit Provider Student in an Organized Health Care Education/Training Program
DX: Z34.90 Encounter for supervision of normal pregnancy, unspecified, unspecified trimester (principal)
CPT/HCPCS: 76805

== ENCOUNTER 2025-03-15 14:16 | Outpatient (CLI) | payer OTHER, MEDICAID, SELFPAY ==
--- OUTSIDE RECORDS SUMMARY | 2025-03-15 14:21 | XMS_ITS | Clinical Summary ---
Author Organization [facility] Address [address] [place] [address] Phone Care Team Providers Care Car Pick Up Driver Name Role Phone Unknown, Notinfile Primary Care [...] deep sleep. Plan: -[place] 79893 -Continue Abilify 20mg daily -Discontinue Depakote; start [...] Q uit: Not Asked; Counseling Given: No [facility] Utilities Answer Date Recorded In the past 12 months has th [place], gas, oil, or water [employer] threatened to shut off services in your [...] often do you attend chur ch or mandaeism services? Patient declined 2023 Do you belong to any clubs o r organizations such as cheondoism groups, unions, fraternal or athletic groups, or [...] medical care, and heating? Somewhat hard 2023 [facility] [place] of Occupat ional Health - Occupational Stress [...] any time in the past 12 m [facility], were you homeless or living in a long-term (including now)? No 2023 Personal Safety Answer [...] Advance Directives For more information, please contact: [phone] * Full Code (Latest Code Status on File) Date Activated Date Inactivated Comments 10/26/2023 5:15 PM 11/08/2023 6:14 PM Care Teams Car Pick Up Driver Relationship Specialty Start Date End Date Unknown, Notinfile PCP - General 09/25/22
[2025-03-15 14:33] LABS: Hematocrit 31.1 % (37.0-47.0); Hemoglobin 9.2 g/dL (12.0-15.0); Mean Corpuscular HGB Conc 29.6 g/dl (32-36); Mean Corpuscular Hemoglobin 22.9 pg (26-34); Mean Corpuscular Volume 77.4 fl (80-100); Platelet Count Result 235 k/mm3 (150-375); Red Blood Count 4.02 M/mm3 (4.2-5.4); White Blood Count 9.1 K/mm3 (4.5-10.0)
[2025-03-15 15:13] LABS: Syphilis IgG/IgM Antibody Non-Reactive (Nonreactive)
== END 2025-03-15 14:17 | disposition home or self-care (01) ==
LOC: ANHLAB 14:18
PROVIDERS: Visit Provider Student in an Organized Health Care Education/Training Program
DX: Z01.812 Encounter for preprocedural laboratory examination (principal)
CPT/HCPCS: 36415; 85027; 86593; 86850; 86900; 86901

== ENCOUNTER 2025-03-16 05:20 | Inpatient (IN) | payer OTHER, MEDICAID, SELFPAY ==
--- NOTE | 2025-03-14 16:24 | P.HP_ITS ---
H&P: HPI History of Present Illness Date/Time: 03/14/25 16:24 Chief Complaint: Intrauterine at term history of Narrative: 29 yo who presents at 39w for repeat . pt has history of c- section due to twin gestation. Patient was late to care with NOB visit at 33w Review of Systems Cardiovascular: Cardiovascular: Denies chest pain, Denies leg edema, Denies palpitations, Denies dyspnea and Denies dyspnea on exertion Respiratory: Respiratory: Denies cough, Denies dyspnea and Denies dyspnea on exertion Gastrointestinal: Gastrointestinal: Denies abdominal pain, Denies constipation, Denies diarrhea, Denies nausea and Denies vomiting Genitourinary: Genitourinary: Denies hematuria, Denies urinary frequency, Denies dysuria, Denies pelvic pain, Denies urinary incontinence and Denies vaginal discharge Neurologic: Reports system reviewed and no additional complaints, except as documented Psychiatric: Psychiatric: Reports no additional psychiatric complaints Endocrine: Endocrine: Denies palpitations PMFSH Past Medical History Medical History Hematuria Encounter for screening examination for sexually transmitted disease Gestational hypertension 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 Abnormal Pap smear of cervix 06-30-2019 lgsil HPV +hpv colpo -CIN2 Surgical History Surgical History (Updated 03/14/25 @ 16:26 by Leonardo Friedman MD) H/O LEEP (09/29/19) History of colposcopy with cervical biopsy 07/22/19 DEJAH II History of 04/04/16 primary c/s--twins, gestational hypertension Family History Family History Father Kidney failure Social History Social History Smoking status: Current every day smoker Tobacco type: e-cigarettes/vaping Alcohol intake: never Substance use: never Substance use type: does not use Lack of Transportation: No Lack of Food: Never True Current Housing: I Have Housing Concerned About Future Housing: No Difficulty Paying Gas/Electric Bills: No Difficulty Paying for Meds: No Currently Unemployed: No Education: High School Diploma/GED Difficulty w/ Childcare or Family Care: No Living arrangements: other Additional living arrangements comments: single Occupation/Education: occupation 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 Gender identity (if verbalized by the patient): Female Sexual Orientation (if Verbalized by the Patient): Straight or Heterosexual Spiritual care concerns: No Meds Home Medications and Allergies Home Medications ?Medication ?Instructions ?Recorded ?Confirmed ?Type ferrous sulfate 325 mg (65 mg 325 mg PO DAILY 03/01/25 03/01/25 History iron) tablet (Feosol) Allergies Allergy/AdvReac Type Severity Reaction Status Date / Time No Known Allergies Allergy Verified 03/10/25 15:19 Exam Const: General: no acute distress Eyes: EOM: EOMs intact bilaterally Neck: Neck: supple Thyroid: thyroid normal Chest: Breast/axilla inspection: normal inspection of the breasts Breast/axilla palpation: normal palpation of the breasts, normal palpation of the axillae and no axillary lymphadenopathy Resp: Effort & Inspection: normal respiratory effort Auscultation: clear to auscultation bilaterally Cardio: Rate: regular rate Rhythm: regular rhythm GI: Inspection: non-distended and other (Gravid) GI Palp: Yes Soft to palpation, No Tenderness to palpation present (GI) and No Guarding due to palpation present (GI) Auscultation: normal bowel sounds : Speculum Exam - Vagina: No vaginal bleeding OB/external & speculum: external exam normal; No vaginal bleeding Skin: General skin exam: normal color and no rashes or lesions noted Neuro: Cognition (Neuro): normal cognition Speech: normal speech Extrem: General: normal to inspection Psych: Mental Status: mental status grossly normal Affect: normal affect Assessment and Plan Assessment and plan (1) : Code(s): Z34.90 - Encounter for supervision of normal , unspecified, unspecified trimester Status: Acute Assessment and Plan: -late to care- NOB visit at 33w -h/o - 2/2 twins -h/o gestational HTN -h/o LEEP for CIN2 in 2019 -GBS positive (2) History of : Code(s): Z98.891 - History of uterine scar from previous surgery Status: Acute Assessment and Plan: plan for repeat
[2025-03-16] VITALS (76 sets, daily range): BP systolic 91–183; BP diastolic 54–162; PULSE 56–108; RESP 14–20; TEMP 36.4–39.6; O2SAT 95–100; BMI 40.8
[2025-03-16] MEDS: LACTATED RINGERS 250 ML 999 ML IVPB (05:58)
[2025-03-16] MEDS: LACTATED RINGERS 1,000 ML 125 ML IV CONT ×2 (06:00→07:05)
[2025-03-16] MEDS: ACETAMINOPHEN 500 MG TABLET 1000 MG PO ×3 (06:16→23:06)
--- NOTE | 2025-03-16 06:18 | WPDHPUPDATE1 ---
History and Physical Update Update Date/Time: 03/16/25 06:18 History and Physical has been reviewed, including an updated exam of the patient. There are NO changes in the patient's condition. Risks, benefits, and alternatives have been discussed and questions answered. Patient agrees to proceed with procedure. patient desires permanent sterilization via bilateral salpingectomy at the time of repeat risks, benefits, alternatives reviewed
--- NOTE | 2025-03-16 06:32 | LDADM ---
This patient, Kinza Munoz, was admitted to Labor/Delivery/Recovery 120 on 03/16/25 at 05:20. Plans for labor, pain management and were discussed with patient. Patient/family oriented to hospital policies and general routines including ID bracelet, bed and alarms, visiting hours, pain management, procedures, bathroom and other care routines, personal items, smoking policy, room service/diet and guest tray routines, infant security routines, and visiting hours. Patient/Family are encouraged to report perceived risks to care and to ask questions if they do not understand what they are told or what they should do. See OBIX for further documentation.
[2025-03-16] MEDS: ONDANSETRON INJ 4 MG/2 ML VIAL IV PUSH (07:44)
[2025-03-16] MEDS: FAMOTIDINE 20 MG/2 ML VIAL IV PUSH (07:44)
[2025-03-16 08:09] LABS: HIV 1/2 Ab P24 Ag Result Negative (Negative)
--- NOTE | 2025-03-16 08:30 | S_PTH ---
PATIENT: Kinza Munoz LOC: [facility] U#:[id number] AGE/SX: 29/F ROOM: 290 RE03/16/[address]: Leonardo Friedman MD : 1995 BED: 00 DIS: 03/18/2025 SPEC #: [id number] RECD: 03/16/25 09:37 STATUS: RAPHAEL REJacob #: [id number] MAHAD: 03/16/25 08:[address]: Leonardo Friedman DEPT: [facility] Surgical RECD BY: Reginaldo Lopez ENTERED: 03/16/25 09:38 SP TYPE: Surgical OTHR DR: MICROFILM DUPLICATING UNIT SUPERVISOR PHYSICIAN Tissues: A - Fallopian Tube Bilateral Procedures: Gross and Microscopic Level 2 Hematoxylin and Eosin Stain
--- NOTE | 2025-03-16 09:04 | W.PM.OBCSD ---
OB - Delivery Note Procedure Delivery date: 03/16/25 Pre-op diagnosis: Previous Delivery Post-op Diagnosis: Same Induction method: None Delivery monitor: External FHT Prior to decision for section, ACOG/SM labor guidelines were considered and discussed with the patient and staff. Decision made to proceed with the section.: Yes Procedure Performed: Repeat Secondary branch: low cervical, transverse and Tubal Ligation Surgeon: Leonardo Friedman MD Anesthesia type: Spinal Description of Procedure/Findings: The patient was taken to the operating room where epidural anesthesia was found to be adequate. She was then prepped and draped in the usual sterile fashion in the dorsal supine position with a leftward tilt. A Pfannenstiel skin incision was then made with the scalpel and carried through to the underlying layer of fascia. The fascia was then incised in the midline and the incision extended laterally with the Pichardo scissors. The superior aspect of the fascia was then grasped with the Joselyn clamps, elevated, and the underlying rectus muscles dissected off bluntly and sharply. Attention was then turned to the inferior aspect of this incision which, in a similar fashion, was grasped, tented up with the Joselyn clamps, and the rectus muscles dissected off both bluntly and sharply. The rectus muscles were then in the midline, and the peritoneum identified, tented up, and entered sharply with the Metzenbaum scissors. The peritoneal incision was then extended superiorly and inferiorly with good visualization of the bladder. The bladder blade was then inserted and the vesicouterine peritoneum identified, grasped with the pick-ups and entered sharply with the Metzenbaum scissors. This incision was then extended laterally and the bladder flap created digitally A ring retractor was placed for better visualization. The lower uterine segment incised in a low, transverse fashion with the scalpel. The uterine incision was then extended laterally bluntly. The ?s head delivered atraumatically. The nose and mouth were suctioned with the bulb suction, and the remainder of the was delivered atraumatically. The cord was clamped and cut. The was handed off to the waiting pediatricians (staff). Cord gasses were sent. The placenta was then removed manually, the uterus exteriorized, and cleared of all clots and debris. The uterine incision was repaired with 0 vicryl in a running fashion. A second imbricating layer of 0-monocryl was placed for excellent hemostasis. Both fallopian tubes were identified and followed out to the fimbrae bilaterally. The left fallopian tube was grasped with Babcocks and elevated. The fallopian tubes was ligated along the inferior mesosalpinx. The tube was transected at the uterine corpus. The same procedure was repeated for the right fallopian tube. The uterus was returned to the abdomen. The uterus was then reinspected to ensure hemostasis as were all subfascial tissues. The peritoneum was re-approximated with vicryl in a running fashion. The fascia was reapproximated with 0 vicryl in a running fashion. The subcutaneous layer was copiously irrigated to clear any clots or debris. The subcutaneous tissue was reapproximated using 3-0 Vicryl in a running fashion. The skin was closed with 4-0 vicryl. The patient tolerated the procedure well. Sponge, lap and needle counts were correct times three. The patient was taken to the recovery room in stable condition. Estimated Blood Loss: 455 Urine Output: 150 Drains: No Packing: No Pathology: Yes (bilateral fallopian tubes) Complications: No immediate complications Condition: Stable Disposition: [facility] Baby Date of : 03/16/25 Gestational Age by Date: 39 Infant gender: Male presentation: vertex Placenta delivery description: Manual Removal Cord Vessel Description: 3 Vessels
[2025-03-16] MEDS: OXYTOCIN 30 UNITS/NS 500 ML 30 UNITS/500 ML BAG 125 UNITS IV CONT (11:00)
--- NOTE | 2025-03-16 11:39 | OBPPTRN ---
1125- Patient transferred to post room #290 via stretcher.. Support person present. Oriented to unit, room, information board, rooming in, admission packet and security measures. Patient verbalizes understanding.
[2025-03-16] MEDS: KETOROLAC 15 MG/ML VIAL (*BKC) (11:46)
[2025-03-16] MEDS: LIDOCAINE 5% PATCH 1 PATCH TRANSDERM (11:46)
[2025-03-16] MEDS: KETOROLAC 15 MG/ML VIAL (*BKC) IV PUSH ×3 (11:46→23:06)
[2025-03-16] MEDS: oxyCODONE HCL (*CRX) 5 MG TAB IR 10 MG PO (11:47)
[2025-03-16] MEDS: SIMETHICONE 80 MG TAB.CHEW PO ×2 (11:50→17:18)
[2025-03-16] MEDS: DEXTROSE 5%/0.45% SOD CHL 1,000 ML 125 ML IV CONT (16:03)
[2025-03-16] MEDS: DOCUSATE SODIUM 100 MG CAPSULE PO (17:18)
--- NOTE | 2025-03-16 17:31 | PC.NURSE ---
0480- This RN spoke with Dr. Friedman regarding pts temp or 103.2 oral- order given to give Tylenol 650mg po now. Explained to Dr. Friedman that pt states she has been getting a temp every day for the past month at this time of day, pt went to ER and with this issue a month ago, cause is unknown. No further orders received, will continue to monitor.
--- NOTE | 2025-03-16 17:59 | PC.NURSE ---
1745- This RN instructed pt one use of incentive spirometer and frequency.
[2025-03-17 04:20] VITALS: BP 118/70; PULSE 87; RESP 16; TEMP 37; O2SAT 99
[2025-03-17] MEDS: ACETAMINOPHEN 500 MG TABLET 1000 MG PO ×4 (04:42→23:35)
[2025-03-17] MEDS: IBUPROFEN 600 MG TABLET PO ×4 (04:42→23:35)
[2025-03-17 05:13] LABS: Hematocrit 25.7 % (37.0-47.0); Hemoglobin 7.8 g/dL (12.0-15.0); Immature Granulocyte Percent A 0.5 % (0-0.5); Lymphocytes Absolute Auto 4.13 K/mm3 (0.9-3.2); Mean Corpuscular HGB Conc 30.4 g/dl (32-36); Mean Corpuscular Hemoglobin 23.5 pg (26-34); Mean Corpuscular Volume 77.4 fl (80-100); Nucleated Red Blood Cells Absolute Auto 0.020 K/mm3 (0.0-0.012); Nucleated Red Blood Cells Perc 0.2 % (0.0-0.2); Platelet Count Result 202 k/mm3 (150-375); Red Blood Count 3.32 M/mm3 (4.2-5.4); White Blood Count 8.2 K/mm3 (4.5-10.0)
[2025-03-17 08:25] VITALS: BP 129/76; PULSE 87; RESP 18; TEMP 36.6; O2SAT 99
[2025-03-17] MEDS: SIMETHICONE 80 MG TAB.CHEW PO ×3 (08:28→17:38)
[2025-03-17] MEDS: MULTIVIT/MIN/PREN/FOL AC/IRON TABLET 1 TAB PO (08:29)
[2025-03-17] MEDS: DOCUSATE SODIUM 100 MG CAPSULE PO ×2 (08:29→17:38)
--- NOTE | 2025-03-17 09:59 | WPDANLDNPN2 ---
Anes-Prog Note L&D-Neuraxial Date/Time: 03/17/25 09:59 Patient feedback: Patient satisfied with post-operative pain management.
--- NOTE | 2025-03-17 10:00 | WPDANLDPN2 ---
Anes-Prog Note L&D Date/Time: 03/17/25 10:00 Neuro status: Neuro function grossly intact. Cardiovascular status: normal Respiratory status: normal Airway patency: baseline Mental status: baseline Post-Op hydration status: normal Vital Signs: Last Vital Signs Temp 36.6 C 03/17/25 08:25 Pulse 87 03/17/25 08:25 Resp 18 03/17/25 08:25 BP 129/76 03/17/25 08:25 Pulse Ox 99 03/17/25 08:25 O2 Del Method Room Air 03/17/25 04:20 Pain score (VAS): 0 I/O: Intake & Output 03/16/25 03/17/25 03/17/25 23:59 07:59 15:59 Intake Total 1000 Output Total 2500 720 350 Balance -1500 -720 -350 Post-procedural complaints: none Patient feedback: Patient satisfied with anesthetic care.
--- NOTE | 2025-03-17 11:13 | PM.OBPNVD ---
OB - PN: Subj Subjective Date/time seen: 03/17/25 11:13 Interval history: doing well this morning. was transferred for respiratory support. She states he is being weaned off of oxygen today. Doing well from a postoperative standpoint. Denies any pain. Patient continues to have cyclical fevers. She states this is not new for her. Patient comments: no complaints, pain well controlled, tolerating diet and flatus present OB - PN: Obj Data Labs 03/17/25 04:41 Labs: Laboratory Results - last 24 hr 03/17/25 04:41 WBC 8.2 RBC 3.32 L Hgb 7.8 L Hct 25.7 L MCV 77.4 L MCH 23.5 L MCHC 30.4 L RDW 22.7 H Plt Count 202 MPV 10.5 H Immature Gran % (Auto) 0.5 Neut % (Auto) 43.5 L Lymph % (Auto) 50.4 H [place] % (Auto) 4.5 Eos % (Auto) 0.5 Baso % (Auto) 0.6 Lymph # (Auto) 4.13 H [place] # (Auto) 0.4 Eos # (Auto) 0.0 Baso # (Auto) 0.1 Abs Immat Gran (auto) 0.04 H Absolute Neuts (auto) 3.6 Absolute Nucleated RBC 0.020 H Nucleated RBC % 0.2 OB - PN A/P Plan day: 1 Plan: routine care Comments: patient doing well H/H 7.12/28, asymptomatic patient continues to have cyclical fevers, no leukocytosis, asymptomatic incision C/D/I wu removed, voiding spontaneously will provide pass to visit son in the NICU continue routine post op care Time Spent With Patient Time: Total time spent is greater than 50% in coordination of care (as documented) at patient's floor/unit and/or counseling patient: Time with patient: less than 15 minutes Review of Systems Constitutional: Constitutional: Reports no additional constitutional complaints Cardiovascular: Cardiovascular: Reports no additional cardiovascular complaints Respiratory: Respiratory: Reports no additional respiratory complaints Gastrointestinal: Gastrointestinal: Reports no additional gastrointestinal complaints Genitourinary: Genitourinary: Reports no additional female genitourinary complaints Exam Const: General: comfortable and no acute distress Resp: Effort & Inspection: normal respiratory effort Auscultation: clear to auscultation bilaterally Cardio: Rate: regular rate GI: GI Palp: Yes Soft to palpation, Yes Tenderness to palpation present (GI) (around incision ) and No Guarding due to palpation present (GI) Auscultation: normal bowel sounds Other: incision C/D/I, covered with Dermabond Psych: Appearance: grossly normal Mental Status: mental status grossly normal Affect: normal affect
[2025-03-17] MEDS: oxyCODONE HCL (*CRX) 5 MG TAB IR PO ×3 (12:08→23:35)
--- NOTE | 2025-03-17 12:15 | PC.NURSE ---
Pt left on a theraputic pass to go see baby at [facility], her mother accompanied her and was driving.
--- NOTE | 2025-03-17 17:00 | PC.NURSE ---
Patient back from theraputic pass/visit with baby at [facility].
[2025-03-17 17:45] VITALS: BP 130/91; PULSE 102; RESP 20; TEMP 37.2; O2SAT 100
[2025-03-17 19:32] VITALS: BP 135/79; PULSE 92; RESP 16; TEMP 37.6; O2SAT 100
[2025-03-18] MEDS: ACETAMINOPHEN 500 MG TABLET 1000 MG PO ×2 (05:01→11:15)
[2025-03-18] MEDS: IBUPROFEN 600 MG TABLET PO ×2 (05:02→11:15)
--- NOTE | 2025-03-18 07:43 | PM.OBDSVD ---
DS: Admitting Diagnosis Discharge Date 03/18/25 Admitting Diagnosis intrauterine at term history of section insufficient care DS: Discharge Diagnosis Discharge Diagnosis (1) delivery delivered: Code(s): O82 - Encounter for delivery without indication Status: Acute OB - DS: Summary OB Procedures : None OB Procedures Intrapartum: OB Procedures: : None Peripartum Data Delivery Method: Section Procedures: Procedures Operation Date: 03/16/25 07:00 Actual Procedure Side Surgeon p Section Bilateral Leonardo Friedman MD complications: none Status at Discharge Functional status at discharge: independent ambulation Overall status at discharge: patient is progressing back to baseline Time Spent with Patient Time attestation: Total time spent providing and/or coordinating discharge services: Time spent: Less than 30 minutes Exam Const: General: comfortable and no acute distress Resp: Effort & Inspection: normal respiratory effort Auscultation: clear to auscultation bilaterally Cardio: Rate: regular rate GI: Inspection: non-distended GI Palp: Yes Soft to palpation, No Firmness to palpation present (GI), Yes Tenderness to palpation present (GI) (mild tenderness over incision ) and No Guarding due to palpation present (GI) Auscultation: normal bowel sounds Psych: Appearance: grossly normal Mental Status: mental status grossly normal DS: Data Data Completed and Pending Completed studies during hospitalization: Pending at discharge 03/16/25 08:30 Surgical [PTH] Routine Discharge Plan Discharge Discharging Clinician: Leonardo Friedman Patient Disposition: Home Activity: as tolerated and pelvic rest Diet: regular Patient Instructions: Antibiotic Form, (DC) Patient Language: Iranian Stand Alone Forms: General Discharge Information Follow-up/Referrals: Leonardo Friedman MD [Physician, PHARMACY TECHNICIAN INSTRUCTOR] Discharge Medications: New oxycodone-acetaminophen 5-325 mg tablet 1 tablet PO Q6H PRN (Reason: pain) Qty: 28 0RF ibuprofen 600 mg tablet 600 mg PO Q6H PRN (Reason: pain) Qty: 30 0RF Continued ferrous sulfate [Feosol] 325 mg (65 mg iron) tablet 325 mg PO DAILY Date of admission: 03/16/25 05:20 Primary Care Provider: PHYSICIAN,IRRIGATION SERVICE TECHNICIAN Admitting Provider: Leonardo Friedman Attending physician on admission: Leonardo Friedman Condition: Stable
[2025-03-18 08:20] VITALS: BP 129/62; PULSE 98; RESP 16; TEMP 37.3; O2SAT 98
[2025-03-18] MEDS: SIMETHICONE 80 MG TAB.CHEW PO (11:15)
--- NOTE | 2025-03-18 13:34 | PCCCNOTE ---
Met with pt. today. Baby Boy was transferred to [facility] two days ago for respiratory support. Pt. has two other children at home, twin 9 year olds at home. Pt. states she did not realize she was until last month. Established with Dr. Friedman at that time. Plans to follow up with Dr. Friedman at discharge. Pt. has [employer] insurance, reports insurance and transportation are not barriers to care. Pt. does not have a PMD, she reports she is thinking about establishing with the [facility] at discharge. Pt. was given a donation basket. Pt. reports her sister is helping her obtain a car seat for use at discharge. resources provided to her. Pt. plans to establish with [facility] services through the [place] office. Pt. anticipates discharge today. Denies any other needs.
== END 2025-03-18 13:55 | disposition home or self-care (01) | DRG 788 ==
LOC: ANHLDR 05:23 → ANHOB2 11:32
PROVIDERS: Admitting Provider Student in an Organized Health Care Education/Training Program; Visit Provider Student in an Organized Health Care Education/Training Program
PROC: 10D00Z1 Extraction of Products of Conception, Low, Open Approach (ICD-10-PCS; CPT 59514; principal; 2025-03-16 07:00)
DX: O34.211 Maternal care for low transverse scar from previous cesarean delivery (principal); Z37.0 Single live birth; Z3A.39 39 weeks gestation of pregnancy; Z23 Encounter for immunization
CPT/HCPCS: 36415; 85025; 85027; 86593; 86703; 86850; 86900; 86901; 88302; A9270; G0432; J1200; J1885; J2274; J2371; J2405; J2590; J7120